=== PATIENT | female | born 1965 | race African-American/Black ===

== ENCOUNTER 2017-04-27 19:01 | Emergency (ER) | payer MEDICAID, OTHER ==
[~2017-04-27] VITALS: Ht 162.6 cm; Wt 53.0 kg
[2017-04-27] MEDS ORDERED: KETOROLAC 60MG/2ML VIAL IM ONE (21:00)
[2017-04-27] MEDS ORDERED: METHOCARBAMOL 500MG TABLET PO ONE (21:00)
[2017-04-27 21:48] LABS: CLARITY URINE TURBID (CLEAR); COLOR URINE DARK YELLOW (YELLOW); KETONES URINE NEGATIVE (NEGATIVE); LEUKOCYTE ESTERASE URINE 2+ (NEGATIVE); NITRITE URINE POSITIVE (NEGATIVE); OCCULT BLOOD URINE 1+ (NEGATIVE); PROTEIN URINE 1+ (NEGATIVE); SPECIFIC GRAVITY URINE 1.022 (1.005-1.030)
[2017-04-27 22:23] VITALS: BP 113/68
== END 2017-04-27 22:26 | disposition home or self-care (01) ==
LOC: ER 20:44
DX: S39.012A Strain of muscle, fascia and tendon of lower back, initial encounter (principal); N39.0 Urinary tract infection, site not specified; M54.2 Cervicalgia; Z87.440 Personal history of urinary (tract) infections; F17.200 Nicotine dependence, unspecified, uncomplicated; X50.0XXA Overexertion from strenuous movement or load, initial encounter; Y93.89 Activity, other specified; Y92.89 Other specified places as the place of occurrence of the external cause; Y99.8 Other external cause status
CPT/HCPCS: 81001; 96372; 99283; J1885

== ENCOUNTER 2017-05-01 19:07 | Inpatient (IN) | payer OTHER ==
[~2017-05-01] VITALS: Ht 165.1 cm; Wt 61.7 kg
[2017-05-01] MEDS ORDERED: OCTREOTIDE ACETATE 50 MCG/ML 1ML IV STA (19:25)
[2017-05-01] MEDS ORDERED: PANTOPRAZOLE SODIUM 40 MG/VIAL IV STA (19:25)
[2017-05-01] MEDS ORDERED: SODIUM CHLORIDE 0.9% 1,000 ML IV ONE (19:25)
[2017-05-01] MEDS ORDERED: DEXT 5%/0.45% NACL 500ML 500 ML IV ONE (19:45)
[2017-05-01] MEDS ORDERED: DEXTROSE 50% WATER 50ML SYRINGE IV ONE (19:45)
[2017-05-01 20:03] LABS: BG CARBOXYHEMOGLOBIN 0.8 % (0.5-1.5); BG DEOXYHEMOGLOBIN 4.4 % (0.0-5.0); BG FRACTION INSPIRED OXYGEN 100; BG HCO3 ACT 8.1 mmol/L (22.0-26.0); BG METHEMOGLOBIN 0.7 % (0.0-1.5); BG OXYGEN SATURATION 95.5 % (92.0-98.5); BG OXYHEMOGLOBIN 94.1 % (94.0-97.0); BG PCO2 39.7 mmHg (35.0-45.0); BG PO2 121.1 mmHg (75.0-100.0); BG SAMPLE SITE LEFT RADIAL; BG TIDAL VOLUME(mL) 550 mL; BG TOTAL HEMOGLOBIN 8.8 g/dL (12.0-18.0); BG VENT MODE VENT - A/C; BG VENT RATE 14 set
[2017-05-01 20:16] LABS: HEMATOCRIT. 29.1 % (36.0-48.0); HEMOGLOBIN 9.7 g/dL (12.0-16.0); HEMOGLOBIN. 9.7 g/dL (12.0-16.0); MEAN CORPUSCULAR HEMOGLOBIN 35.5 pg (28.0-32.0); MEAN CORPUSCULAR VOLUME 106.2 fL (81.0-99.0); RED BLOOD CELL COUNT 2.74 mill/uL (4.2-5.4)
[2017-05-01 20:24] LABS: CHLORIDE 92 mEq/L (98-107)
[2017-05-01 20:32] LABS: MEAN PLATELET VOLUME 9.2 fl (7.4-10.4)
[2017-05-01 20:34] LABS: AMMONIA 344 uMol/L (<32); PLATELET 38 x1000/uL (130-400)
[2017-05-01 20:37] LABS: PLATELET ESTIMATE MARKEDLY DECREASED
[2017-05-01 20:39] LABS: PROTHROMBIN TIME 68.9 sec (9.4-11.6)
[2017-05-01 20:40] LABS: CLARITY URINE CLOUDY (CLEAR); COLOR URINE DARK YELLOW (YELLOW); KETONES URINE NEGATIVE (NEGATIVE); LEUKOCYTE ESTERASE URINE TRACE (NEGATIVE); NITRITE URINE NEGATIVE (NEGATIVE); OCCULT BLOOD URINE 2+ (NEGATIVE); PROTEIN URINE NEGATIVE (NEGATIVE); SPECIFIC GRAVITY URINE 1.015 (1.005-1.030)
[2017-05-01 20:40] LABS: INR 6.6
[2017-05-01 20:41] LABS: PARTIAL THROMBOPLASTIN TIME 149.4 sec (23.4-31.0)
[2017-05-01 21:06] LABS: HEPATITIS B SURFACE ANTIGEN NEGATIVE
[2017-05-01 21:35] LABS: HEPATITIS B CORE AB IGM NEGATIVE
[2017-05-01 21:36] LABS: HEPATITIS A AB IGM NEGATIVE (NEGATIVE)
[2017-05-01] MEDS ORDERED: SODIUM CHLORIDE 0.9% 1,000 ML IV SCH (23:54)
[2017-05-02] VITALS (32 sets, daily range): BP systolic 43–204; BP diastolic 28–138
[2017-05-02] MEDS ORDERED: PHYTONADIONE 10MG/ML AMP SUBCUT SCH
[2017-05-02] MEDS ORDERED: ALBUMIN HUMAN 25GM/100ML (25%) IV SCH
[2017-05-02] MEDS ORDERED: FOLIC ACID 1 MG, THIAMINE HCL 100 MG in SODIUM CHLORIDE 0.9% 1,000 ML IV SCH ×3
[2017-05-02] MEDS ORDERED: IPRATROPIUM/ALBUTEROL 0.5-3(2.5)MG/3ML NEB INH PRN
[2017-05-02] MEDS ORDERED: ONDANSETRON HCL 4MG/2ML VIAL IV PRN
[2017-05-02 00:48] LABS: BG BASE EXCESS -27.2 mmol/L (-2.0-2.0); BG CARBOXYHEMOGLOBIN 0.7 % (0.5-1.5); BG DEOXYHEMOGLOBIN 0.9 % (0.0-5.0); BG FRACTION INSPIRED OXYGEN 100; BG HCO3 ACT 5.9 mmol/L (22.0-26.0); BG METHEMOGLOBIN 0.7 % (0.0-1.5); BG OXYGEN SATURATION 99.1 % (92.0-98.5); BG OXYHEMOGLOBIN 97.7 % (94.0-97.0); BG PEEP (cmH2O) 0 cmH2O; BG PO2 239.3 mmHg (75.0-100.0); BG SAMPLE SITE RIGHT RADIAL; BG TIDAL VOLUME(mL) 550 mL; BG TOTAL HEMOGLOBIN 9.3 g/dL (12.0-18.0); BG VENT MODE VENT - A/C; BG VENT RATE 14 set
[2017-05-02] MEDS ORDERED: SODIUM BICARBONATE 8.4% 1 MEQ/ML 50ML SYR IV SCH (00:54)
[2017-05-02] MEDS ORDERED: OCTREOTIDE 1,000 MCG in SODIUM CHLORIDE 0.9% 98 ML IV PRN (01:00)
[2017-05-02] MEDS ORDERED: PANTOPRAZOLE 80 MG in SODIUM CHLORIDE 0.9% 100 ML IV SCH ×2 (01:00)
[2017-05-02] MEDS ORDERED: SODIUM CHLORIDE 0.9% IV SCH (01:30)
[2017-05-02] MEDS ORDERED: SODIUM BICARBONATE IV SCH (01:30)
[2017-05-02] MEDS ORDERED: NOREPINEPHRINE 8 MG in DEXT 5% WATER 242 ML IV PRN (02:00)
[2017-05-02] MEDS ORDERED: VASOPRESSIN 10 UNIT in SODIUM CHLORIDE 0.9% 99.5 ML IV PRN (03:00)
[2017-05-02] MEDS ORDERED: NOREPINEPHRINE 32 MG in DEXT 5% WATER 468 ML IV PRN (03:15)
[2017-05-02 03:23] LABS: BG BASE EXCESS -17.1 mmol/L (-2.0-2.0); BG CARBOXYHEMOGLOBIN 0.9 % (0.5-1.5); BG DEOXYHEMOGLOBIN 1.1 % (0.0-5.0); BG FRACTION INSPIRED OXYGEN 100; BG HCO3 ACT 10.8 mmol/L (22.0-26.0); BG OXYGEN SATURATION 98.9 % (92.0-98.5); BG PCO2 34.8 mmHg (35.0-45.0); BG PEEP (cmH2O) 0 cmH2O; BG PH 7.109 (7.350-7.450); BG PO2 183.2 mmHg (75.0-100.0); BG SAMPLE SITE LEFT BRACHIAL; BG TIDAL VOLUME(mL) 550 mL; BG TOTAL HEMOGLOBIN 5.5 g/dL (12.0-18.0); BG VENT MODE VENT - A/C; BG VENT RATE 22 set
[2017-05-02 03:24] LABS: HEMATOCRIT 16.3 % (36.0-48.0); HEMOGLOBIN 5.4 g/dL (12.0-16.0)
[2017-05-02] MEDS ORDERED: PHENYLEPHRINE 40 MG in DEXT 5% WATER 246 ML IV PRN (03:30)
[2017-05-02] MEDS ORDERED: EPINEPHRINE 1 MG in SODIUM CHLORIDE 0.9% 249 ML IV PRN (04:00)
[2017-05-02] MEDS ORDERED: ETOMIDATE 2MG/ML 10ML VIAL IV ONE (04:00)
[2017-05-02] MEDS ORDERED: SUCCINYLCHOLINE CHLORIDE 200MG/10ML VIAL IV ONE (04:00)
[2017-05-02] MEDS ORDERED: DEXTROSE 50% WATER 50ML SYRINGE IV ONE (04:03)
[2017-05-02] MEDS ORDERED: LACTULOSE 20G/30ML UDC PO SCH (06:00)
[2017-05-02] MEDS ORDERED: MULTIVITAMINS,THER W-MINERALS TABLET PO SCH (09:00)
[2017-05-02] MEDS ORDERED: THIAMINE HCL 100MG TABLET PO SCH (09:00)
[2017-05-02] MEDS ORDERED: FOLIC ACID 1MG TABLET PO SCH (09:00)
[2017-05-02 13:20] LABS: *AMPHETAMINES SCREEN URINE NEGATIVE (NEGATIVE); *BARBITURATES SCREEN URINE NEGATIVE (NEGATIVE); *BENZODIAZEPINES SCREEN URINE NEGATIVE (NEGATIVE); *COCAINE SCREEN URINE PRESUMTIVE POSITIVE (NEGATIVE); CANNABINOID URINE SCREEN NEGATIVE (NEGATIVE); METHADONE URINE SCREEN NEGATIVE (NEGATIVE); OPIATES URINE SCREEN PRESUMTIVE POSITIVE (NEGATIVE); PHENCYCLIDINE URINE SCREEN NEGATIVE (NEGATIVE)
== END 2017-05-02 04:15 | disposition expired | DRG 279 ==
LOC: ER 19:13 → CVICU 20:02 → EDBEDREQ 20:03 → EDBEDREQTM 20:03 → ENRESERV 22:39
PROVIDERS: ADMIT Internal Medicine; ATTEND Internal Medicine
PROC: 0BH17EZ Insertion of Endotracheal Airway into Trachea, Via Natural or Artificial Opening (ICD-10-PCS; principal; 2017-05-01)
PROC: 5A1935Z Respiratory Ventilation, Less than 24 Consecutive Hours (ICD-10-PCS; 2017-05-01)
PROC: 5A12012 Performance of Cardiac Output, Single, Manual (ICD-10-PCS; 2017-05-01)
PROC: 30233K1 Transfusion of Nonautologous Frozen Plasma into Peripheral Vein, Percutaneous Approach (ICD-10-PCS; 2017-05-01)
PROC: 30233P1 Transfusion of Nonautologous Frozen Red Cells into Peripheral Vein, Percutaneous Approach (ICD-10-PCS; 2017-05-01)
DX: K72.00 Acute and subacute hepatic failure without coma (principal); J96.00 Acute respiratory failure, unspecified whether with hypoxia or hypercapnia; I46.9 Cardiac arrest, cause unspecified; D61.818 Other pancytopenia; D68.9 Coagulation defect, unspecified; N18.6 End stage renal disease; N17.9 Acute kidney failure, unspecified; E87.2 Acidosis; I12.0 Hypertensive chronic kidney disease with stage 5 chronic kidney disease or end stage renal disease; K70.31 Alcoholic cirrhosis of liver with ascites; D50.9 Iron deficiency anemia, unspecified; E87.1 Hypo-osmolality and hyponatremia; E88.09 Other disorders of plasma-protein metabolism, not elsewhere classified; E83.41 Hypermagnesemia; E83.51 Hypocalcemia; Z87.891 Personal history of nicotine dependence; F10.10 Alcohol abuse, uncomplicated; E16.2 Hypoglycemia, unspecified; K92.2 Gastrointestinal hemorrhage, unspecified; Z87.440 Personal history of urinary (tract) infections
CPT/HCPCS: 31500; 36415; 36430; 36600; 51702; 74176; 80053; 80076; 80305; 81001; 82140; 82375; 82805; 82962; 83036; 83605; 83690; 83735; 85014; 85018; 85025; 85610; 85651; 85730; 86705; 86709; 86803; 86850; 86900; 87040; 87077; 87086; 87186; 87340; 96374; 96375; 99291; C9113; J0330; J2354; J3411; J3430; J3490; J7030; J7050; P9017; P9047